=== PATIENT | female | born 1970 | race American Indian/Alaskan Native ===

== ENCOUNTER 2016-12-27 06:08 | Day surgery (SDC) | payer MEDICAID ==
[2016-12-27] MEDS ORDERED: WATER FOR IRRIG STERILE IR ONE (07:04)
--- NOTE | 2016-12-27 07:42 | Anesthesia Consultation ---
Anesthesia Consult and Med Hx Date of service: 12/27/16 - Airway Anesthetic Teeth Evaluation: Good ROM Head & Neck: Adequate Mental/Hyoid Distance: Adequate Mallampati Class: Class II Intubation Access Assessment: Probably Good - Pulmonary Exam CTA: Yes - Cardiac Exam Cardiac Exam: RRR - Pre-Operative Health Status ASA Pre-Surgery Classification: ASA3 Proposed Anesthetic Plan: MAC - Gastrointestinal Hx Gastroesophageal Reflux Disease: Yes - Hematic Hx Anemia: Yes Hx Sickle Cell Disease: Yes (trait) - Other Systems Hx Obesity: Yes
--- NOTE | 2016-12-27 07:42 | Anesthesia Day of Surgery ---
Anesthesia Day of Surgery - Day of Surgery Patient Examined: Yes Patient H&P Reviewed: Yes Patient is NPO: Yes
[2016-12-27] MEDS ORDERED: DIPRIVAN 10 MG/ML IV ONE ×2 (07:46)
[2016-12-27] MEDS ORDERED: NACL 0.9% 1000 ML 1,000 ML IV SCH (08:00)
--- NOTE | 2016-12-27 08:18 | Discharge Summary ---
Providers - Providers Date of discharge: 12/27/16 Attending physician: LILIAN DUCKWORTH Hospitalization Reason for admission: outpatient EGD Condition: Stable Disposition: DC-01 TO HOME OR SELFCARE Core Measure Documentation - Palliative Care Palliative Care/ Comfort Measures: Not Applicable - Core Measures Any of the following diagnoses?: none Exam - Physical Exam Narrative exam: unchanged from preop - Constitutional Vitals: Temp Pulse Resp BP Pulse Ox 97.5 F L 81 19 131/85 99 12/27/16 07:20 12/27/16 07:20 12/27/16 07:20 12/27/16 07:20 12/27/16 07:20 Plan Activity: advance as tolerated Diet: low carbohydrate
--- NOTE | 2016-12-27 08:21 | Operative Report ---
Operative Report Operative Report: EGD Post bypass DATE: 12/27/2016 OPERATIVE REPORT - EGD PREOP DIAGNOSIS: gastric dyspepsia POSTOP DIAGNOSIS: failure of gastrojejunostomy SURGERY: Upper endoscopy. SURGEON: Carl Lackey M.D. HEATER WORKER: Mark Yanez M.D. TYPE OF ANESTHESIA: MAC. ESTIMATED BLOOD LOSS: None. COMPLICATIONS: None. SPECIMENS REMOVED: None. FINDINGS: 1. normal esophagus 2. gastric pouch - 40ml 3. gastrojejunal anastomosis is 30mm INDICATIONS:INDICATION FOR PROCEDURE: Patient is a 46-year-old female s/p gastric bypass in 2005. The patient is here today for evaluation for gastric dyspepsia and possible revisional surgery. PROCEDURE DETAILS: After consent was reviewed, patient was taken back to the operating room where patient was placed in the left lateral decubitus position and a bite block was placed in the mouth. After a time-out was called, MAC anesthesia was initiated. I then passed the endoscope into the patients oropharynx, into the esophagus, visualized the entire esophagus, which was all within normal limits. I then visualized the gastric pouch which was normal and about 40ml in size. The gastrojejunal anastomosis was dilated at about 30mm. The proximal portion of the dipika limb was normal. I then desufflated the gastric pouch and removed the endoscope. Patient tolerated procedure well and was transferred to recovery room in good and stable condition
[2016-12-27 08:45] VITALS: BP 117/65
--- NOTE | 2016-12-27 08:54 | Post Anesthesia Evaluation ---
- Post Anesthesia Evaluation Patient Participated: Yes Airway Patent: Yes Stable Respiratory Function: Yes Nausea/Vomiting: No Temp > 96.8F: Yes Pain Manageable: Yes Adequeate Hydration: Yes Anesthesia Complications: No Block Receding Appropriately: Not Applicable Patient on Ventilator: No
== END 2016-12-27 06:09 | disposition home or self-care (01) ==
LOC: GIO 06:08
PROVIDERS: ATTEND Specialist
DX: K91.89 Other postprocedural complications and disorders of digestive system (principal); K21.9 Gastro-esophageal reflux disease without esophagitis; D64.9 Anemia, unspecified; I10 Essential (primary) hypertension; D57.3 Sickle-cell trait; E66.9 Obesity, unspecified; Z68.43 Body mass index [BMI] 50.0-59.9, adult; Z98.890 Other specified postprocedural states; Z79.899 Other long term (current) drug therapy; Z83.2 Family history of diseases of the blood and blood-forming organs and certain disorders involving the immune mechanism; Z83.49 Family history of other endocrine, nutritional and metabolic diseases; Z82.49 Family history of ischemic heart disease and other diseases of the circulatory system; Y83.2 Surgical operation with anastomosis, bypass or graft as the cause of abnormal reaction of the patient, or of later complication, without mention of misadventure at the time of the procedure
CPT/HCPCS: 43235; 81025; J2704; J7030